=== PATIENT | male | born 1955 | race Caucasian/White ===

== ENCOUNTER 2019-01-11 10:11 | Outpatient (CLI) | payer MEDICARE ==
--- NOTE | 2019-01-11 11:36 | Diagnostic Imaging Report ---
Indication: Cough Technique: 2 views of the chest Comparison: 05/27/2010 Findings: There is a 4.7 cm opacity projected at the right lung base, probably anteriorly and probably in the middle lobe. The remainder of the lungs are clear. The pleural spaces are clear. Impression: 4.7 cm right basilar opacity, could represent a focal infiltrate, mass also possible. Recommend follow-up to resolution, with consideration for CT scan should lesion failed to resolve Findings and recommendations discussed by phone with Dr. Block at the time of interpretation
== END 2019-01-11 12:11 | disposition home or self-care (01) ==
LOC: RAD 10:11
DX: R05 Cough (principal)
CPT/HCPCS: 71046

== ENCOUNTER 2019-02-02 11:24 | Outpatient (CLI) | payer MEDICARE, OTHER ==
--- NOTE | 2019-02-02 12:57 | Diagnostic Imaging Report ---
Indication: Cough, follow-up abnormality on prior study Technique: One view of the chest Comparison: 01/11/2019 Findings: Ill-defined somewhat irregular opacity at the right anterolateral lung base measures 3 cm in diameter, previously reported as 4.7 cm, appears somewhat less prominent. It is also slightly less prominent on the lateral view area no new infiltrates or lesions demonstrated. The heart is borderline enlarged. The bones are unremarkable. Impression: Right basilar opacity appears somewhat smaller and less prominent than on previous exam of 01/11/2019. Recommend further short interval follow-up chest radiography until resolution, with consideration for CT should lesion fail to resolve
== END 2019-02-02 13:24 | disposition home or self-care (01) ==
LOC: RAD 11:24
DX: R05 Cough (principal)
CPT/HCPCS: 71046

== ENCOUNTER → 2020-05-17 | Outpatient (CLI) | payer MEDICARE, OTHER ==
--- NOTE | 2020-05-17 13:18 | Diagnostic Imaging Report ---
Indication: Cough Technique: PA and lateral views the chest Comparison: 02/02/2019 Findings: Multifocal patchy airspace opacities are noted in the periphery, with the largest in the periphery of the right upper lobe measuring approximately 2.7 cm transverse. Heart size and mediastinal contours within normal limits and stable compared to the prior exam. Trace pleural effusion. There is no pneumothorax. Osseous structures demonstrate no acute abnormality. IMPRESSION: Patchy bilateral airspace opacities with a peripheral predominance. Findings are concerning for multifocal pneumonia, including atypical or viral pneumonia -especially given history of cough. Clinical correlation and radiographic follow-up after recommended to ensure resolution. Findings discussed with referring physician Richard Block MD via telephone conversation.
== END | disposition home or self-care (01) ==
LOC: RAD 12:42
DX: J18.9 Pneumonia, unspecified organism (principal); R05 Cough
CPT/HCPCS: 71046

== ENCOUNTER → 2020-05-23 | Outpatient (CLI) | payer MEDICARE, OTHER ==
--- NOTE | 2020-05-23 13:55 | Diagnostic Imaging Report ---
Clinical Indication: Cough, history of pneumonia Technique: Spiral acquisition obtained through the chest. No IV contrast utilized, per high resolution protocol. Axial 5 x 5 mm slices were reconstructed. Axial 1 mm thick slices were reconstructed using high resolution algorithm at 10 mm intervals. Multiplanar reconstructions generated. Total dose length product 231 mGycm. CTDIvol(s) 4 mGy. Dose reduction achieved using automated exposure control Comparison: 05/22/2012 Findings: Dense consolidation with air bronchograms, peripheral groundglass opacity and some associated bronchiectasis is seen in the right upper lobe apex. There is some associated architectural distortion. Similar smaller opacities are seen in the inferomedial right upper lobe. Irregular dense consolidation is also seen in the inferior periphery of the right upper lobe. More patchy and groundglass and focally dense opacities are seen in the superior segment of the right lower lobe and minimally in the right middle lobe. These opacities are largely new since the prior exam. Similar irregular opacities with architectural distortion, dense consolidation, groundglass opacity, air bronchograms, bronchiectasis are likewise demonstrated in the apical segment of the left upper lobe, with similar smaller opacities seen scattered elsewhere in the left upper lobe. An area of opacity in the inferomedial lingula is to some extent evident previously but more extensive currently. The left lower lobe is clear. No interstitial septal thickening, nodularity, or honeycombing is demonstrated. No masses are demonstrated. There is a small air cyst in the superior segment of the right lower lobe. The heart size is normal. No pericardial effusion. Unremarkable esophagus. No mediastinal or hilar mass or adenopathy. The ascending thoracic aorta is ectatic, measuring 39 mm in diameter. This has increased in caliber since the previous study. Included portion of the thyroid is unremarkable. No axillary or chest wall mass or adenopathy. The bones are unremarkable except for degenerative spondylosis changes. The included upper abdominal anatomy is unremarkable. Impression: Bilateral mostly upper lobe opacities, as described, with the predominant pattern being consolidation, architectural distortion, bronchiectasis, with some associated groundglass opacity. Findings are suggestive of an organizing pneumonia, nonspecific as regards etiology Small right lower lobe air cyst Ectatic but not frankly aneurysmal ascending thoracic aorta. Note the aortic caliber has increased since the prior exam of 05/22/[address] scanner at [facility] is accredited by the [employer] and the scans are performed using protocols designed to limit radiation exposure to as low as reasonably achievable to attain images of sufficient resolution adequate for diagnostic evaluation.
== END | disposition home or self-care (01) ==
LOC: CAT 08:54
DX: R05 Cough (principal); K76.89 Other specified diseases of liver; J47.9 Bronchiectasis, uncomplicated; J18.9 Pneumonia, unspecified organism
CPT/HCPCS: 71250